=== PATIENT | male | born 1980 ===

== ENCOUNTER 2021-09-29 13:29 | Emergency (ER) | payer SELFPAY ==
[2021-09-29 13:43] VITALS: BP 137/90
--- NOTE | 2021-09-29 14:32 | Emergency Department Report ---
ED General Adult HPI - General Chief complaint: Abdominal Pain Stated complaint: STOMACH AND HEMMOROIDS? Time Seen by Provider: 09/29/21 14:10 Source: patient Mode of arrival: Ambulatory Limitations: Language Barrier - History of Present Illness Initial comments: Patient is a 41-year-old male presents emergency room complaints of hemorrhoids that began yesterday. He states that he was straining to have a bowel movement and felt the hemorrhoids come out. States since then he has had rectal pain from the hemorrhoids. Patient states he was last able to have a bowel movement yesterday but no bowel movement today. He is still able to pass gas. He denies any hematochezia, melena, hematemesis, fever, vomiting. No other past medical history. No allergies to medications. - Related Data Previous Rx's Medication Instructions Recorded Last Taken Type Docusate Sodium [Colace] 100 mg PO BID #60 capsule 09/29/21 Unknown Rx Hydrocortisone [Anusol-Hc 2.5% TOP 1 applicatio RC TID #1 cream..g. 09/29/21 Unknown Rx CREAM] Allergies Allergy/AdvReac Type Severity Reaction Status Date / Time No Known Allergies Allergy Unverified 09/29/21 13:37 ED Review of Systems ROS: Stated complaint: STOMACH AND HEMMOROIDS? Other details as noted in HPI Comment: All other systems reviewed and negative ED Past Medical Hx - Past Medical History Previous Medical History?: No - Surgical History Past Surgical History?: No - Medications Home Medications: Home Medications Medication Instructions Recorded Confirmed Last Taken Type Docusate Sodium [Colace] 100 mg PO BID #60 capsule 09/29/21 Unknown Rx Hydrocortisone [Anusol-Hc 2.5% TOP 1 applicatio RC TID #1 cream..g. 09/29/21 Unknown Rx CREAM] ED Physical Exam - General Limitations: Language Barrier General appearance: alert, in no apparent distress - Head Head exam: Present: atraumatic, normocephalic - Eye Eye exam: Present: normal appearance - ENT ENT exam: Present: mucous membranes moist - Respiratory Respiratory exam: Present: normal lung sounds bilaterally. Absent: respiratory distress, wheezes, rales, rhonchi, stridor, chest wall tenderness, accessory muscle use, decreased breath sounds, prolonged expiratory - Cardiovascular Cardiovascular Exam: Present: regular rate, normal rhythm, normal heart sounds. Absent: systolic murmur, diastolic murmur, rubs, gallop - GI/Abdominal GI/Abdominal exam: Present: soft, normal bowel sounds. Absent: distended, tenderness, guarding, rebound, rigid - Rectal Rectal exam: Present: other (acute care physician: alex ortega PA-C, there is a 2 cm external hemorrhoid, non thrombosed present at the 12 oclock position, unable to reduce, no bleeding, no gross blood, no erythema) - Neurological Exam Neurological exam: Present: alert, oriented X3 - Psychiatric Psychiatric exam: Present: normal affect, normal mood - Skin Skin exam: Present: warm, dry, intact ED Course Vital Signs 09/29/21 13:42 Temperature 98.0 F Pulse Rate 95 H Respiratory 20 Rate Blood Pressure 137/90 O2 Sat by Pulse 98 Oximetry ED Medical Decision Making - Medical Decision Making Patient is a 41-year-old male presents emergency room complaints of hemorrhoids that began yesterday. He states that he was straining to have a bowel movement and felt the hemorrhoids come out. States since then he has had rectal pain from the hemorrhoids. Patient states he was last able to have a bowel movement yesterday but no bowel movement today. He is still able to pass gas. He denies any hematochezia, melena, hematemesis, fever, vomiting. No other past medical history. No allergies to medications. Vitals are normal. On exam:acute care physician: alex ortega PA-C, there is a 2 cm external hemorrhoid, non thrombosed present at the 12 oclock position, unable to reduce, no bleeding, no gross blood, no erythema. Patient given prescription for medication. Discussed the importance of outpatient follow-up. Discussed very strict return precautions with patient including but not limited to worsening rectal pain, blood in the stool, abdominal pain, unable to pass gas or have a bowel movement, vomiting, fever, drainage, etc.. Advised patient Please use medication as prescribed. Follow-up with your primary care doctor. Follow-up with a GI doctor. Return to emergency room for any new or worsening symptoms. Critical care attestation.: If time is entered above; I have spent that time in minutes in the direct care of this critically ill patient, excluding procedure time. ED Disposition Clinical Impression: External hemorrhoid Disposition: HOME / SELF CARE / HOMELESS Is pt being admited?: No Does the pt Need Aspirin: No Condition: Stable Instructions: Hemorrhoids, Lype-of-Prwa Additional Instructions: Please use medication as prescribed. Follow-up with your primary care doctor. Follow-up with a GI doctor. Return to emergency room for any new or worsening symptoms. Utilice la medicacin segn lo prescrito. Stuart un seguimiento con gerber mdico de atencin primaria. Seguimiento con un mdico gastrointestinal. Regrese a la stefania de emergencias por cualquier sntoma nuevo o que empeore. Prescriptions: Hydrocortisone [Anusol-Hc 2.5% TOP CREAM] 1 applicatio RC TID #1 cream..g. Docusate Sodium [Colace] 100 mg PO BID #60 capsule Referrals: PRIMARY MD TERE [Primary Care Provider] - 3-5 Days NELY SCHWARTZ MD [Staff Physician] - 3-5 Days [facility] [Provider Group] - 3-5 Days Time of Disposition: 14:48 Print Language: MONEGAS[place]
== END 2021-09-29 15:04 | disposition home or self-care (01) ==
LOC: ED 13:29
DX: K64.4 Residual hemorrhoidal skin tags (principal); Z79.899 Other long term (current) drug therapy
CPT/HCPCS: 99282